=== PATIENT | male | born 1985 | race Caucasian/White ===

== ENCOUNTER 2018-02-04 01:26 | Emergency (ER) | payer SELFPAY ==
[~2018-02-04] VITALS: Ht 165.1 cm; Wt 74.8 kg
[2018-02-04 01:48] VITALS: BP_SYST 125
[2018-02-04 02:07] VITALS: BP_SYST 125
== END 2018-02-04 02:07 | disposition home or self-care (01) ==
LOC: SED 01:26
DX: S51.802A Unspecified open wound of left forearm, initial encounter (principal); R03.0 Elevated blood-pressure reading, without diagnosis of hypertension; V87.8XXA Person injured in other specified noncollision transport accidents involving motor vehicle (traffic), initial encounter; Y93.55 Activity, bike riding; Y92.488 Other paved roadways as the place of occurrence of the external cause; Y99.8 Other external cause status
CPT/HCPCS: 99283

== ENCOUNTER 2020-04-04 19:06 | Emergency (ER) | payer OTHER, MEDICAID ==
[~2020-04-04] VITALS: Ht 165.1 cm; Wt 81.6 kg
[2020-04-04 19:06] VITALS: BP_SYST 126
--- NOTE | 2020-04-04 19:06 | NUR ---
Placed in room 4. Placed on tube bender, blood pressure machine and pulse oximeter. To gown for exam. Side rails up. Report given to BEN Hudson.
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
--- NOTE | 2020-04-04 19:23 | NUR ---
Patient transported to radiology via wheelchair, accompanied by
[2020-04-04] MEDS ORDERED: KETOROLAC TROMETHAMINE 30 MG VIAL IM ONE (19:45)
--- NOTE | 2020-04-04 19:49 | NUR ---
PT RETURNED FROM RADIOLOGY.
--- NOTE | 2020-04-04 19:55 | NUR ---
SUJATA SHOEMAKER at bedside examining patient.
[2020-04-04] MEDS: IBUPROFEN 800 MG TABLET PO ONE (19:57)
--- NOTE | 2020-04-04 20:20 | NUR ---
XRAY AT BEDSIDE.
--- NOTE | 2020-04-04 21:00 | NUR ---
tech at bedside applying an erika wrap to left ankle, sling to right shoulder, and educating pt on how to use crutches properly and safely.
[2020-04-04 21:25] VITALS: BP_SYST 126
--- NOTE | 2020-04-04 21:25 | NUR ---
Patient given written and verbal discharge instructions and verbalizes understanding. ER MD discussed with patient the results and treatment provided. Patient in stable condition. ID arm band removed. Rx of ibuprofen given. Patient educated on pain management and to follow up with PMD. Pain Scale 5/10. Opportunity for questions provided and answered. Medication side effect fact sheet provided.
== END 2020-04-04 21:25 | disposition home or self-care (01) ==
LOC: SED 19:06
DX: S46.811A Strain of other muscles, fascia and tendons at shoulder and upper arm level, right arm, initial encounter (principal); S93.492A Sprain of other ligament of left ankle, initial encounter; S00.83XA Contusion of other part of head, initial encounter; V29.9XXA Motorcycle rider (driver) (passenger) injured in unspecified traffic accident, initial encounter; Y93.89 Activity, other specified; Y92.89 Other specified places as the place of occurrence of the external cause; Y99.8 Other external cause status
CPT/HCPCS: 70450-TC; 71045; 73030; 73060-TC; 99284; J1885

== ENCOUNTER 2020-07-12 16:50 | Emergency (ER) | payer MEDICAID ==
[~2020-07-12] VITALS: Ht 165.1 cm; Wt 84.8 kg
[2020-07-12 16:55] VITALS: BP_SYST 134
[2020-07-12] MEDS: LIDOCAINE 1% 10 MG/ML, 20 ML MDV INJ ONE (17:17)
[2020-07-12 18:16] VITALS: BP_SYST 126
== END 2020-07-12 18:16 | disposition home or self-care (01) ==
LOC: SED 16:50
DX: S61.214A Laceration without foreign body of right ring finger without damage to nail, initial encounter (principal); W26.8XXA Contact with other sharp object(s), not elsewhere classified, initial encounter; Y93.89 Activity, other specified; Y92.89 Other specified places as the place of occurrence of the external cause; Y99.8 Other external cause status
CPT/HCPCS: 12001; 99282; J2001

== ENCOUNTER 2021-12-19 23:43 | Emergency (ER) | payer MEDICAID ==
[~2021-12-19] VITALS: Ht 165.1 cm; Wt 74.8 kg
[2021-12-20 00:40] VITALS: BP_SYST 124
[2021-12-20] MEDS ORDERED: IBUP-1969 PO (14:14)
[2021-12-20] MEDS ORDERED: CEPH-548 PO (14:14)
== END 2021-12-20 04:05 | disposition left against medical advice (07) ==
LOC: SED 23:43
DX: S90.851A Superficial foreign body, right foot, initial encounter (principal); Z53.21 Procedure and treatment not carried out due to patient leaving prior to being seen by health care provider; X58.XXXA Exposure to other specified factors, initial encounter; Y93.89 Activity, other specified; Y92.89 Other specified places as the place of occurrence of the external cause; Y99.8 Other external cause status
CPT/HCPCS: 99283

== ENCOUNTER 2021-12-20 12:23 | Emergency (ER) | payer MEDICAID ==
[~2021-12-20] VITALS: Ht 165.1 cm; Wt 74.8 kg
[2021-12-20 12:26] VITALS: BP_SYST 134
--- NOTE | 2021-12-20 12:32 | NUR ---
PT TRIAGED AND PLACED IN ED WAITING ROOM FOR AVAILABLE BED, MADE AWARE OF MSE NEEDS
--- NOTE | 2021-12-20 13:20 | NUR ---
Pt to bed #3 coming from home ambulatory with steady gait. Pt c/o using his grill at home last night when a piece of the grill fell on top of his right foot. There is swelling noted. Pt is A&Ox4. Skin intact. No chest pain and no sob. Denies n/v. NKA. No known medical conditions. Bed in lowest position.
--- NOTE | 2021-12-20 13:40 | NUR ---
ER at bedside examining patient.
[2021-12-20] MEDS ORDERED: KETOROLAC TROMETHAMINE 30 MG VIAL IM ONE (14:00)
[2021-12-20] MEDS ORDERED: IBUP-1969 PO (14:14)
[2021-12-20] MEDS ORDERED: CEPH-548 PO (14:14)
--- NOTE | 2021-12-20 14:26 | NUR ---
Pt refused pain medication. Stated "I do not want any painmedication".
[2021-12-20] MEDS ORDERED: BACITRACIN 1 GM OINT TP ONE (15:16)
[2021-12-20 15:23] VITALS: BP_SYST 118
--- NOTE | 2021-12-20 15:24 | NUR ---
Patient given written and verbal discharge instructions and verbalizes understanding. ER MD discussed with patient the results and treatment provided. Patient in stable condition. ID arm band removed. Rx of Ibuprofen and Cephalexin given. Patient educated on pain management and to follow up with PMD. Pain Scale 0/10. Opportunity for questions provided and answered. Medication side effect fact sheet provided.
[2021-12-20] MEDS ORDERED: NITROGLYCERIN 250 ML IV ONE (20:54)
== END 2021-12-20 15:24 | disposition home or self-care (01) ==
LOC: SED 12:23
DX: S90.851A Superficial foreign body, right foot, initial encounter (principal); F12.90 Cannabis use, unspecified, uncomplicated; W45.8XXA Other foreign body or object entering through skin, initial encounter; Y93.89 Activity, other specified; Y92.89 Other specified places as the place of occurrence of the external cause; Y99.8 Other external cause status
CPT/HCPCS: 10120; 99285; J3490; 99283